=== PATIENT | female | born 1995 | race Caucasian/White ===

== ENCOUNTER 2016-07-07 08:43 | Emergency (ER) | payer MEDICAID ==
[2016-07-07] MEDS ORDERED: NEB-ALBUTEROL 2.5 MG/3 ML INH ONE (10:13)
== END 2016-07-07 11:52 | disposition home or self-care (01) ==
LOC: ER 08:43
DX: H66.002 Acute suppurative otitis media without spontaneous rupture of ear drum, left ear (principal); J20.9 Acute bronchitis, unspecified; Z79.899 Other long term (current) drug therapy; F17.210 Nicotine dependence, cigarettes, uncomplicated
CPT/HCPCS: 71020; 87804; 87880; 94640